=== PATIENT | female | born 1960 | race Caucasian/White ===

== ENCOUNTER → 2017-02-26 | Outpatient (CLI) | payer MEDICAID | END | disposition home or self-care (01) | LOC: RAD 10:41 → EDBD 10:41 | PROVIDERS: ATTEND Internal Medicine | DX: M25.532 Pain in left wrist (principal); R10.9 Unspecified abdominal pain; M51.36 Other intervertebral disc degeneration, lumbar region | CPT/HCPCS: 74020 ==

== ENCOUNTER → 2019-04-14 | Outpatient (CLI) | payer MEDICAID | END | disposition home or self-care (01) | LOC: CVU 07:44 | PROVIDERS: ATTEND Nurse Practitioner Family | DX: I08.3 Combined rheumatic disorders of mitral, aortic and tricuspid valves (principal); I10 Essential (primary) hypertension | CPT/HCPCS: 93306 ==

== ENCOUNTER → 2021-03-23 | Outpatient (CLI) | payer MEDICAID ==
[~2021-03-23] MED LIST: REGADENOSON 0.4 MG/5 ML SYRINGE ONE
== END | disposition home or self-care (01) ==
LOC: CFH 08:01
PROVIDERS: ATTEND Nurse Practitioner Family
DX: Z01.810 Encounter for preprocedural cardiovascular examination (principal); I48.91 Unspecified atrial fibrillation
CPT/HCPCS: 78452; 93017; A9502; J2785

== ENCOUNTER → 2021-04-15 | Outpatient (CLI) | payer MEDICAID ==
[~2021-04-15] MED LIST changes: +OMNIPAQUE 350 MG/ML, 150 ML BOTTLE ONE; -REGADENOSON 0.4 MG/5 ML SYRINGE ONE
== END | disposition home or self-care (01) ==
LOC: CFH 12:08
PROVIDERS: ATTEND Internal Medicine Cardiovascular Disease
DX: Z01.810 Encounter for preprocedural cardiovascular examination (principal); I48.0 Paroxysmal atrial fibrillation; Z20.822 Contact with and (suspected) exposure to COVID-19
CPT/HCPCS: 71046; 75572; Q9967; U0003; U0005

== ENCOUNTER 2021-04-20 06:36 | Inpatient (IN) | payer MEDICAID ==
[~2021-04-20] VITALS: Ht 177.8 cm; Wt 135.3 kg
[2021-04-20] MEDS ORDERED: SODIUM CHLORIDE 0.9% 1,000 ML IV SCH (07:00)
[2021-04-20] MEDS ORDERED: APIX5TAB PO (07:03)
[2021-04-20] MEDS ORDERED: ATOR20TA37 PO (07:03)
[2021-04-20] MEDS ORDERED: MAGN400T36 PO (07:07)
[2021-04-20] MEDS ORDERED: LEVO150T PO (07:07)
[2021-04-20] MEDS ORDERED: METO25TA91 PO (07:07)
[2021-04-20] MEDS ORDERED: MULT-658 PO (07:07)
[2021-04-20] MEDS ORDERED: PARO20TA98 PO (07:07)
[2021-04-20] MEDS ORDERED: HYDR-3248 PO (07:07)
[2021-04-20] MEDS ORDERED: Vitamin E PO (07:07)
[2021-04-20] MEDS ORDERED: CHOL10003 PO (07:07)
[2021-04-20] MEDS ORDERED: Krill Oil PO (07:08)
[2021-04-20 07:09] VITALS: BP 146/90
[2021-04-20 07:46] LABS: BASOPHILS % (AUTO) 1 % (0-1); EOSINOPHILS % (AUTO) 3 % (1-7); LYMPHOCYTES % (AUTO) 30 % (22-44); MEAN CORPUSCULAR HEMOGLOBIN 30.8 pg (27.0-34.8); MEAN CORPUSCULAR HGB CONC 33.7 g/dL (32.4-35.8); MEAN PLATELET VOLUME 10.6 fL (7.4-10.4); MONOCYTES % (AUTO) 10 % (2-9); NEUTROPHILS % (AUTO) 56 % (42-75); PLATELET COUNT 140 x10^3/uL (130-400); RED BLOOD COUNT 4.66 x10^6/uL (3.82-5.3); RED CELL DISTRIBUTION WIDTH 13.7 % (9.6-15.2)
[2021-04-20 07:56] LABS: INTERNATIONAL NORMALIZED RATIO 1.01 (0.93-1.1); PROTHROMBIN TIME 10.8 Seconds (9.6-11.5)
[2021-04-20 07:57] LABS: ALANINE AMINOTRANSFERASE 41 U/L (12-78); ALBUMIN 3.7 g/dL (3.4-5.0); ANION GAP 4 mmol/L (5-15); CALCIUM 9.4 mg/dL (8.5-10.1); CHLORIDE 104 mmol/L (98-107); CREATININE 0.63 mg/dL (0.55-1.02)
[2021-04-20 08:07] LABS: ALKALINE PHOSPHATASE 79 U/L (45-117); BILIRUBIN,TOTAL 0.5 mg/dL (0.2-1.0); TOTAL PROTEIN 7.9 g/dL (6.4-8.2)
[2021-04-20] MEDS ORDERED: MIDAZOLAM 1 MG/ML, 2ML ONE (08:25)
[2021-04-20] MEDS ORDERED: FENTANYL PF 100 MCG/2ML ONE ×2 (08:26→12:50)
[2021-04-20] MEDS ORDERED: PROMETHAZINE 25 MG/ML, 1ML IVPush PRN (08:30)
[2021-04-20] MEDS ORDERED: hydrALAzine 20 MG/ML, 1ML IV PRN (08:30)
[2021-04-20] MEDS ORDERED: EPHEDRINE 50 MG/ML, 1ML IVPush PRN (08:30)
[2021-04-20] MEDS ORDERED: LABETALOL 5MG/ML, 20ML IV PRN (08:30)
[2021-04-20] MEDS ORDERED: FENTANYL PF 100 MCG/2ML IV PRN (08:30)
[2021-04-20] MEDS ORDERED: HYDROmorphone 1 MG/ML, 1ML INJ IVPush PRN (08:30)
[2021-04-20] MEDS ORDERED: ONDANSETRON 2MG/ML, 2ML IVPush PRN (08:30)
[2021-04-20] MEDS ORDERED: OXYcodone 5 MG/5 ML ORAL.SOL UDC PO PRN (08:30)
[2021-04-20] MEDS ORDERED: ACETAMINOPHEN 325 MG TABLET PO PRN ×2 (08:30→13:00)
[2021-04-20] MEDS ORDERED: LIDOCAINE 1%, 20ML ONE (08:40)
[2021-04-20] MEDS ORDERED: HEPARIN 1,000 UNITS/ML, 10ML ONE ×3 (08:56→10:05)
[2021-04-20] MEDS ORDERED: DEXAMETHASONE 4 MG/ML, 1ML ONE (08:57)
[2021-04-20] MEDS ORDERED: ONDANSETRON 2MG/ML, 2ML ONE (08:57)
[2021-04-20] MEDS ORDERED: SUCCINYLCHOLINE 20 MG/ML, 10ML ONE (08:57)
[2021-04-20] MEDS ORDERED: GLYCOPYRROLATE 0.2MG/1ML, 5ML ONE (08:57)
[2021-04-20] MEDS ORDERED: ROCURONIUM 10MG/ML,5ML ONE ×3 (08:57→12:17)
[2021-04-20] MEDS ORDERED: NEOSTIGMINE 1 MG/ML, 10ML ONE (08:57)
[2021-04-20] MEDS ORDERED: PROPOFOL 10 MG/ML, 20ML ONE (08:57)
[2021-04-20] MEDS ORDERED: OXYcodone 5 MG/5 ML ORAL.SOL UDC ONE (12:49)
[2021-04-20] MEDS ORDERED: ACETAMINOPHEN 650 MG/20.3 ML UDC ONE (12:50)
[2021-04-20] MEDS ORDERED: APIXABAN 5 MG TABLET ONE (13:39)
[2021-04-20] MEDS: APIXABAN 5 MG TABLET PO SCH (13:40)
[2021-04-20] MEDS ORDERED: PHENYLEPHRINE 10 MG/ML ONE (15:12)
[2021-04-20] MEDS: HYDROcodone/APAP 10/325 MG TABLET PO PRN (18:02)
[2021-04-20] MEDS: SOTALOL 80MG TABLET PO SCH (18:03)
[2021-04-20 19:56] VITALS: BP 114/71
[2021-04-20] MEDS ORDERED: APIXABAN 5 MG TABLET PO SCH (21:00)
[2021-04-20] MEDS: COLCHICINE 0.6 MG CAPSULE PO SCH (21:38)
[2021-04-20] MEDS: ATORVASTATIN 20 MG TABLET PO SCH (21:38)
[2021-04-20] MEDS: MAGNESIUM OXIDE 400 MG TABLET PO SCH (21:39)
[2021-04-20] MEDS: ZOLPIDEM 5MG TABLET PO PRN (23:06)
[2021-04-21 01:17] VITALS: BP 115/78
[2021-04-21] MEDS: HYDROcodone/APAP 10/325 MG TABLET PO PRN ×4 (01:46→20:27)
[2021-04-21] MEDS: LEVOTHYROXINE 150 MCG TABLET PO SCH (05:39)
[2021-04-21] MEDS: SOTALOL 80MG TABLET PO SCH ×2 (05:39→18:00)
[2021-04-21] MEDS ORDERED: KETOROLAC 30 MG/1 ML IVPush ONE (09:00)
[2021-04-21] MEDS: MAGNESIUM OXIDE 400 MG TABLET PO SCH ×2 (09:39→20:26)
[2021-04-21] MEDS: METOPROLOL SUCCINATE 25 MG TAB.ER.24H PO SCH (09:39)
[2021-04-21] MEDS: MULTIVITAMIN 1 TABLET PO SCH (09:39)
[2021-04-21] MEDS: COLCHICINE 0.6 MG CAPSULE PO SCH ×2 (09:40→20:26)
[2021-04-21] MEDS: APIXABAN 5 MG TABLET PO SCH ×2 (09:40→20:26)
[2021-04-21] MEDS: CHOLECALCIFEROL 5,000u TAB PO SCH (09:40)
[2021-04-21 10:42] VITALS: BP 103/65
[2021-04-21 13:08] VITALS: BP 109/75
[2021-04-21 19:33] VITALS: BP 134/80
[2021-04-21] MEDS: ATORVASTATIN 20 MG TABLET PO SCH (20:27)
[2021-04-22] MEDS: ZOLPIDEM 5MG TABLET PO PRN (00:33)
[2021-04-22 01:30] VITALS: BP 120/81
[2021-04-22] MEDS: HYDROcodone/APAP 10/325 MG TABLET PO PRN ×2 (02:54→08:58)
[2021-04-22 06:17] VITALS: BP 101/62
[2021-04-22] MEDS: LEVOTHYROXINE 150 MCG TABLET PO SCH (06:21)
[2021-04-22] MEDS: SOTALOL 80MG TABLET PO SCH (07:29)
[2021-04-22 07:41] VITALS: BP 101/64
[2021-04-22] MEDS: MAGNESIUM OXIDE 400 MG TABLET PO SCH (08:59)
[2021-04-22] MEDS: MULTIVITAMIN 1 TABLET PO SCH (09:00)
[2021-04-22] MEDS: METOPROLOL SUCCINATE 25 MG TAB.ER.24H PO SCH (09:00)
[2021-04-22] MEDS ORDERED: PAROXETINE 20 MG TABLET PO SCH (09:00)
[2021-04-22] MEDS: APIXABAN 5 MG TABLET PO SCH (09:00)
[2021-04-22] MEDS: CHOLECALCIFEROL 5,000u TAB PO SCH (09:00)
[2021-04-22] MEDS: COLCHICINE 0.6 MG CAPSULE PO SCH (09:00)
[2021-04-22] MEDS ORDERED: ACET325T26 PO (09:14)
[2021-04-22] MEDS ORDERED: COLC0.6C3 PO (09:14)
[2021-04-22] MEDS ORDERED: SOTA80TA18 PO (09:14)
== END 2021-04-22 11:00 | disposition home or self-care (01) | DRG 274 ==
LOC: CACL 06:36 → 5SO 14:25 → CACL 21:53 → OBSVTOIN 21:54 → 5SO 21:54 → DCLOUNGE 04-22 10:57
PROVIDERS: ADMIT Internal Medicine Cardiovascular Disease; ATTEND Internal Medicine Cardiovascular Disease
PROC: 02K83ZZ Map Conduction Mechanism, Percutaneous Approach (ICD-10-PCS; 2021-04-20)
PROC: 4A023FZ Measurement of Cardiac Rhythm, Percutaneous Approach (ICD-10-PCS; 2021-04-20)
PROC: 4A0234Z Measurement of Cardiac Electrical Activity, Percutaneous Approach (ICD-10-PCS; 2021-04-20)
PROC: B24BZZ4 Ultrasonography of Heart with Aorta, Transesophageal (ICD-10-PCS; 2021-04-20)
PROC: 02583ZZ Destruction of Conduction Mechanism, Percutaneous Approach (ICD-10-PCS; principal; 2021-04-20 08:00)
DX: I48.3 Typical atrial flutter (principal); D68.69 Other thrombophilia; Z68.41 Body mass index [BMI] 40.0-44.9, adult; I48.91 Unspecified atrial fibrillation; E03.9 Hypothyroidism, unspecified; E66.01 Morbid (severe) obesity due to excess calories; I10 Essential (primary) hypertension; Z79.01 Long term (current) use of anticoagulants; Z90.3 Acquired absence of stomach [part of]; Z79.899 Other long term (current) drug therapy
CPT/HCPCS: 36415; 80053; 84443; 85025; 85610; 93005; 93306; 93312; 93321; 93325; 93613; 93655; 93656; 93657; 93662; C1730; C1732; C1759; C1766; C1893; C1894; J0330; J1100; J1644; J1885; J2250; J2370; J2405; J2704; J2710; J3010; J3490; 85347; G0378